=== PATIENT | male | born 1990 | race Caucasian/White ===

== ENCOUNTER 2021-05-14 13:06 | Outpatient (REF) | payer MEDICAID, SELFPAY ==
[2021-05-14 13:07] VITALS: BP 151/94; PULSE 86; RESP 18; TEMP 37.1; O2SAT 100; BMI 24.0
--- NOTE | 2021-05-14 13:27 | RAD_ITS ---
STUDY: X-RAY - NASAL BONES REASON FOR EXAM: Male, 30 years old. Trauma TECHNIQUE: 3 view(s) of the nasal bones. COMPARISON: None. FINDINGS: There is a non-displaced transverse fracture of the nasal bones. Normal anterior nasal spine. There is no demonstrated soft tissue swelling. The remaining visualized osseous structures are normal. Normal visualized paranasal sinuses. RAD/Nasal Bones min 3 Views IMPRESSION: Nondisplaced nasal fracture. Electronically Signed: Andrews Tripp MD at 14:06 EDT ,
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
[2021-05-14] MEDS: Cephalexin 500 MG Capsule PO (15:11)
[2021-05-14 15:12] VITALS: PULSE 82; RESP 17; O2SAT 100
== END 2021-05-14 23:59 | disposition home or self-care (01) ==
LOC: ED 13:06
PROVIDERS: Visit Provider Emergency Medicine
DX: S02.2XXA Fracture of nasal bones, initial encounter for closed fracture (principal); F20.9 Schizophrenia, unspecified; S01.21XA Laceration without foreign body of nose, initial encounter; F17.210 Nicotine dependence, cigarettes, uncomplicated; X58.XXXA Exposure to other specified factors, initial encounter; Y93.9 Activity, unspecified; Y92.149 Unspecified place in prison as the place of occurrence of the external cause
CPT/HCPCS: 12011; 70160; 99284

== ENCOUNTER 2022-11-23 14:45 | Emergency (ER) | payer MEDICAID, SELFPAY ==
[2022-11-23 14:45] VITALS: BP 147/88; PULSE 95; RESP 22; TEMP 36.4; O2SAT 96
[2022-11-23 15:00] VITALS: BMI 20.9
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
[2022-11-23 15:29] LABS: Absolute Lymphocyte Count 2.08 X10^3/uL (0.83-4.51); Absolute Neutrophil Count 7.9 X10^3/uL (2.0-7.7); Basophil# 0.09 X10^3/uL; Basophil% 0.8 % (0-1); Eosinophil# 0.35 X10^3/uL; Hemoglobin 13.9 g/dL (13.0-16.5); Lymphocyte # 2.08 X10^3/ul (0.83-4.51); Lymphocyte % 17.9 % (19-41); Mean Corp Hgb Conc 32.3 g/dL (32-36); Mean Corpuscular Hgb 29.1 pg (27.0-32.0); Mean Platelet Vol. 10.4 fl (6.2-12.0); Monocyte# 1.19 X10^3/uL; Monocyte% 10.2 % (0-10); NRBC Flagged by Analyzer 0 % (0-5); Neutrophil # 7.89 X10^3/uL (2.7-7.7); Neutrophil % 67.8 % (47-70); Platelet Count 327 K/mm3 (150-450); RBC Distribution Width CV 13.2 % (11.6-14.6); RBC Distribution Width SD 43.6 fl (35.1-43.9); Red Blood Count 4.78 M/mm3 (4.6-6.2); White Blood Count 11.6 K/mm3 (4.4-11.0)
[2022-11-23 15:39] LABS: Alcohol, Blood (Medical)-Serum < 3.0 mg/dL; Anion Gap 4 (5-15); BUN 20 mg/dL (7-18); Calcium,Total 9.5 mg/dL (8.5-10.1); Chloride 107 mmol/L (98-107); Creatinine, Serum 1.05 mg/dL (0.70-1.30); EST Glomerular Filtration Rate 88 mL/min (>60); Est Glom Filt Rate - Afr Amer 107 mL/min (>60); Estimated Creatinine Clearance 106.01 ml/min; Glucose 98 mg/dL (74-106); Potassium 4.4 mmol/L (3.5-5.1); Sodium Level 139 mmol/L (136-145)
[2022-11-23] MEDS: Ziprasidone IM 20 MG/ML VIAL IM (16:05)
--- NOTE | 2022-11-23 16:30 | ED.RN ---
1600: This nurse went into patient room requesting a urine sample. Patient became very agitated and began requesting his belongings. He stated,If you don't give me my fucking clothes I'll walk out of here ass naked. Redirection given to patient as well as verbal de-escalation. Patient began yelling. Security called. Security walked into the room and began to try to verbal de-escalate the patient. Patient accused the security control center operator of looking at his genitals. The patient then proceeded to jump out of bed and lunge towards this nurse and the door. Staff in to assist the security control center operator. Physician notified. Order given for restraints. 1605: 4 point locked limb restraints applied. Geodon given IM.
[2022-11-23 16:45] VITALS: BP 125/74; PULSE 96; RESP 16
[2022-11-23 17:00] VITALS: BP 125/75; PULSE 94; RESP 16
[2022-11-23 17:15] LABS: Amphetamine Urine VISTA POSITIVE (<1000 ng/mL); Barbiturate Urine VISTA NEGATIVE (< 200 ng/mL); Benzodiazepine Urine VISTA NEGATIVE (< 200 ng/mL); Cocaine Urine VISTA NEGATIVE (< 300 ng/mL); Ecstacy Urine VISTA POSITIVE (< 500 ng/mL); Methadone Urine VISTA NEGATIVE (< 300 ng/mL); PCP Urine VISTA NEGATIVE (< 25 ng/mL); THC Urine VISTA POSITIVE (< 50 ng/mL); Vista UDS pH Range 5
[2022-11-23 18:00] VITALS: BP 121/81; PULSE 92; RESP 12
[2022-11-23 19:00] VITALS: BP 121/66; PULSE 68; RESP 12
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
--- NOTE | 2022-11-23 20:25 | CM.ED ---
Social Work SW faxed referrals to [facility], [facility] and [facility] to review for psychiatric placement. Hand off to [facility]- referral packet to be faxed to [facility] if referrals are declined. Care team updated. ALEXIS did not update patient regarding referrals as he resumed sleeping. Plan: referrals pending at [facility], [facility] and [facility] Janna HASKINS, LIZETT
--- NOTE | 2022-11-23 21:47 | EKG12_ITS ---
Test Reason : [facility] [place] : / mmHG Vent. Rate : 074 BPM Atrial Rate : 074 BPM P-R Int : 128 ms QRS Dur : 092 ms QT Int : 410 ms P-R-T Axes : 073 078 064 degrees QTc Int : 455 ms Normal sinus rhythm Normal ECG Confirmed by SURESH ROSADO, PRIYANKA ([id number]), marketing editor LIZETT MONTEZ ([id number]) on 11/29/2022 12:33:56 PM Referred By: Confirmed By:PRIYANKA PRINCE MD
[2022-11-23 22:32] LABS: CPK Total, Creatine Kinase 1476 U/L (39-308)
--- NOTE | 2022-11-23 23:21 | ED.RN ---
generations removed . patient cpk level high at this time. they request patient be under 1200. once level is below range bed is available and willing to accept patient
[2022-11-24 04:02] VITALS: BP 107/66; RESP 16
--- NOTE | 2022-11-24 04:47 | ED.RN ---
[facility] just needs faxed at this time [phone]
[2022-11-24 06:16] VITALS: BP 112/65; RESP 16
[2022-11-24 08:21] VITALS: RESP 14; O2SAT 98
[2022-11-24 10:00] VITALS: BP 138/62; PULSE 74; RESP 16; O2SAT 99
== END 2022-11-24 10:31 ==
PROVIDERS: Emergency Medicine; Emergency Provider Emergency Medicine; Visit Provider Emergency Medicine
DX: R45.851 Suicidal ideations (principal); F17.210 Nicotine dependence, cigarettes, uncomplicated
CPT/HCPCS: 80048; 80307; 82077; 82550; 85025; 87811; 93005; 99285